=== PATIENT | female | born 1975 ===

== ENCOUNTER → 2022-06-07 | Outpatient (CLI) | payer OTHER ==
[2022-06-07 11:11] LABS: BASOPHILS ABSOLUTE AUTO 0.11 K/mm3 (0.00-0.23); BASOPHILS PERCENT AUTO 1 % (0-2); EOSINOPHILS ABSOLUTE AUTO 0.35 K/mm3 (0.00-0.68); EOSINOPHILS PERCENT AUTO 3 % (0-6); Hematocrit 46.1 % (33.0-51.0); Hemoglobin 16.1 g/dL (11.5-16.0); IMMATURE GRAN ABSOLUTE AUTO 0.12 K/mm3 (0.00-0.10); IMMATURE GRAN PERCENT AUTO 1 % (0-1); LYMPHOCYTES ABSOLUTE AUTO 3.09 K/mm3 (0.84-5.20); LYMPHOCYTES PERCENT AUTO 28 % (21-46); MONOCYTES ABSOLUTE AUTO 0.87 K/mm3 (0.16-1.47); MONOCYTES PERCENT AUTO 8 % (4-13); Mean Corpuscular HGB Conc 34.9 g/dL (31.5-36.5); Mean Corpuscular Volume 89 fL (80-100); Mean Platelet Volume 10.1 fL (9.1-12.4); NEUTROPHILS ABSOLUTE AUTO 6.56 K/mm3 (1.96-9.15); NEUTROPHILS PERCENT AUTO 59 % (41-73); Platelet Count 319 K/mm3 (150-400); RDW Coefficient Variation 12.7 % (11.7-14.2); RDW Standard Deviation 41.1 fL (35.1-46.3); Red Blood Cell Count 5.19 M/mm3 (3.80-5.20)
[2022-06-07 11:28] LABS: Albumin, Blood 3.9 g/dL (3.4-5.0); Bilirubin, Total 0.3 mg/dL (0.1-1.0); Bun/Creatinine Ratio 19.2 (12.0-20.0); Calcium, Blood 8.9 mg/dL (8.5-10.1); Creatinine, Blood 0.73 mg/dL (0.40-1.00); Potassium, Blood 3.7 mmol/L (3.5-5.5); Thyroid Stimulating Hormone 0.799 uIU/mL (0.360-4.800); Total Protein, Blood 7.9 g/dL (6.4-8.2)
== END | disposition home or self-care (01) ==
LOC: LAB 11:05 → LAB SHORT 11:05
PROVIDERS: Physician Assistant
DX: N39.0 Urinary tract infection, site not specified (principal); R20.2 Paresthesia of skin; R53.83 Other fatigue
CPT/HCPCS: 80053; 82306; 83735; 84443; 85025; 87086